=== PATIENT | female | born 1985 | race Two or more races ===

== ENCOUNTER 2024-10-17 06:56 | Emergency (ER) | payer MEDICAID, SELFPAY ==
[2024-10-17 07:02] VITALS: BP 181/99; PULSE 70; RESP 18; TEMP 36.6; O2SAT 99; BMI 30.8
[2024-10-17 07:16] VITALS: PULSE 84; RESP 20; O2SAT 98
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
== END 2024-10-17 09:42 | disposition home or self-care (01) ==
PROVIDERS: Emergency Provider Emergency Medicine; PCP Family Medicine
DX: S13.4XXA Sprain of ligaments of cervical spine, initial encounter (principal); M54.6 Pain in thoracic spine; R51.9 Headache, unspecified; V89.9XXA Person injured in unspecified vehicle accident, initial encounter
CPT/HCPCS: 70450; 72072; 72125; 99283